=== PATIENT | female | born 1985 | race African-American/Black ===

== ENCOUNTER 2023-04-21 06:49 | Emergency (ER) | payer OTHER, MEDICAID ==
[~2023-04-21] VITALS: Ht 170.2 cm; Wt 73.0 kg
[2023-04-21 06:51] VITALS: TEMP 101.7
[2023-04-21 07:20] VITALS: BP 122/74; PULSE 98; RESP 18; O2SAT 98
[2023-04-21 07:43] LABS: HEMATOCRIT. 39.4 % (36.0-48.0); HEMOGLOBIN. 13.3 g/dL (12.0-16.0); MEAN CORPUSCULAR HGB CONC 33.8 g/dL (31.0-37.0); MEAN CORPUSCULAR VOLUME 91.7 fL (81.0-99.0); MEAN PLATELET VOLUME 7.8 fl (7.4-10.4); PLATELET 253 x1000/uL (130-400); RED BLOOD CELL COUNT 4.29 mill/uL (4.2-5.4); RED CELL DISTRIBUTION WIDTH 13.1 % (11.6-14.6); WHITE BLOOD COUNT 15.4 x1000/uL (4.5-11.0)
[2023-04-21 07:50] LABS: CHLORIDE 113 mEq/L (98-107); INDEX HEMOLYSI 2 (1-3); INDEX ICTERIC 1 (1-4); INDEX LIPEMIC 1 (1-3); POTASSIUM 3.8 mEq/L (3.5-5.1); SODIUM 138 mEq/L (136-145)
[2023-04-21 07:57] LABS: DIFFERENTIAL COMMENT 1
[2023-04-21 08:01] LABS: ALANINE AMINOTRANSFERASE 97 IU/L (13-61); ALBUMIN 4.3 g/dL (3.4-5.0); ASPARTATE AMINOTRANSFERASE 118 IU/L (15-37); BILIRUBIN TOTAL 0.5 mg/dL (0.1-1.0); CALCIUM 9.2 mg/dL (8.5-10.1); CARBON DIOXIDE 16 mEq/L (21-32); CREATININE 1.8 mg/dL (0.6-1.3); ETHANOL BLOOD < 10 mg/dL (-10); GLUCOSE 73 mg/dL (70-105); PROTEIN TOTAL 8.4 g/dL (6.0-8.3); UREA NITROGEN BLOOD 21 mg/dL (7-21)
[2023-04-21 08:09] LABS: TROPONIN I HIGH SENSITIVITY 488 ng/L (<54)
[2023-04-21 08:58] LABS: PLATELET ESTIMATE NORMAL
== END 2023-04-21 09:00 | disposition left against medical advice (07) ==
LOC: ER 06:49 → EDBD 06:49 → ER 09:00
DX: G93.40 Encephalopathy, unspecified (principal); R77.8 Other specified abnormalities of plasma proteins; R51.9 Headache, unspecified
CPT/HCPCS: 80053; 80320; 85025; 84484; 36415; 71045; 70450; 99291; Z7610; G0480